=== PATIENT | female | born 1965 | race Caucasian/White ===

== ENCOUNTER 2017-06-21 07:57 | Emergency (ER) | payer BC, OTHER ==
[2017-06-21] MEDS ORDERED: ASPIRIN 81 MG TAB.CHEW PO ONE (08:12)
[2017-06-21] MEDS ORDERED: ASPIRIN 81 MG TAB.CHEW ONE (08:27)
[2017-06-21] MEDS ORDERED: MAG HYDROX/ALUMINUM HYD/SIMETH 30 ML UDC PO ONE (08:29)
[2017-06-21] MEDS ORDERED: LIDOCAINE HCL 20 ML UDC PO ONE (08:29)
[2017-06-21 08:35] LABS: Hematocrit 44.8 % (37.0-47.0); Hemoglobin 16.2 gm/dL (12.5-16.0); Mean Cell Volume 87.3 fl (78-100); Mean Corpuscular Hemoglobin 31.6 pg (27-31); Mean Corpuscular Hgb Conc 36.2 g/dl (32-36); Mean Platelet Volume 9.1 fl (6.0-9.5); Neutrophil # 6.4 K/mm3 (1.3-6.0); Neutrophil % 62.5 % (42-75.0); Platelet Count 234 K/mm3 (150-450); Red Blood Count 5.13 M/mm3 (4.2-5.4); Red Cell Distribution Width 12.3 % (11.5-14.0); White Blood Count 10.2 K/mm3 (4.0-10.5)
[2017-06-21 08:41] LABS: Prothrombin Time (Patient) 10.1 Seconds (9.0-11.0)
[2017-06-21 08:42] LABS: INR 1.01 INR (0.90-1.10); Partial Thrombolplastin Time 23.3 Seconds (24-32)
[2017-06-21] MEDS ORDERED: NITROGLYCERIN 0.4 MG/TAB BTL SL ONE (08:46)
[2017-06-21 08:49] LABS: ALT 119 U/L (19-67); AST 50 U/L (0-48); Albumin * 3.6 gm/dl (3.4-5.0); Alkaline Phosphatase * 116 U/L (50-170); Amylase * 28 U/L (25-115); Anion Gap 12.8 mmol/L (6.8-13.8); BUN/Creatinine Ratio 13.8 (9.0-21.6); Bilirubin, Total 0.7 mg/dL (0.0-1.1); Blood Urea Nitrogen 16 mg/dL (3-23); Ca. Corrected For Albumin 8.7 mg/dL (8.4-10.2); Calcium * 8.7 mg/dL (7.9-10.9); Carbon Dioxide 26.4 mmol/L (24-32.6); Chloride 102 mmol/L (97-106); Glucose * 123 mg/dL (70-110); Potassium 4.2 mmol/L (3.4-4.6); Sodium 137 mmol/L (132-142); Total Protein 6.9 gm/dL (6.2-8.2); Troponin I Less than 0.017 ng/ml (0.00-0.10)
[2017-06-21 08:58] LABS: Lipase 125 U/L (73-393)
[2017-06-21] MEDS ORDERED: PANTOPRAZOLE SODIUM 40 MG in NORMAL SALINE 100 ML IV ONE (09:05)
[2017-06-21 09:24] LABS: Urine Bilirubin Negative (NEGATIVE); Urine Blood Negative /ul (NEGATIVE); Urine Ketone Negative (NEGATIVE); Urine Nitrite Negative (NEGATIVE); Urine Protein Negative (NEGATIVE); Urine Urobilinogen Normal (NORMAL)
[2017-06-21] MEDS ORDERED: PANTOPRAZOLE SODIUM 40 MG in NORMAL SALINE 50 ML IV ONE (09:30)
[2017-06-21 09:31] LABS: Urine Appearance Clear; Urine Bacteria None Seen; Urine Color Yellow; Urine RBC None Seen /hpf (0-5); Urine WBC None Seen /hpf (0-5)
--- NOTE | 2017-06-21 12:36 | ERNOTE ---
Chest Pain/Cardiac HPI Date of Service: 06/21/17 Chief Complaint: Chest Pain Time Seen by Provider: 06/21/17 08:15 Source: patient, family Exam Limitations: no limitations Immunizations: IMMUNIZATION HX Immunizations Up to Date Yes History of Influenza Vaccine Yes Hx Pneumococcal Vaccination No Allergies/Adverse Reactions: Allergies lidocaine Allergy (Verified 06/21/17 08:11) Home Medications: HOME MEDICATIONS Atenolol [Tenormin] 50 mg PO DAILY 09/08/15 [Last Taken Unknown] Narrative: patient had episode of pin in epigastrium with radiatiion to chest, hx of gerd Timing: intermittent, resolved prior to arrival Severity/Quality: moderate, aching, sharp Location: substernal, epigastric Chest Pain Radiation: epigastric Activities at Onset: none Modifying Factors - Improves: Present: rest Modifying Factors - Worsens: Present: eating Nitro Today/Relief: no nitro taken today Aspirin Treatment Today: no aspirin today Associated Symptoms: Present: denies symptoms Review of Systems - Narrative Narrative: unremakable - Review of Systems Constitutional: Present: See HPI EYE: Present: no symptoms reported ENT: Present: no symptoms reported Respiratory: Present: no symptoms reported Cardiology: Present: no symptoms reported Gastrointestinal/Abdominal: Present: no symptoms reported Genitourinary: Present: no symptoms reported Musculoskeletal: Present: no symptoms reported Skin: Present: no symptoms reported Neurological: Present: no symptoms reported Endocrine: Present: no symptoms reported Hematologic/Lymphatic: Present: no symptoms reported Psych: Present: no symptoms reported All Other Systems: All systems neg except as marked - Narrative Narrative: unremarkable - Patient's Past Medical History Patient History - Medical: No pertinent hx Patient History - Cardiac/Respiratory: Hypertension Patient History - Cancer: No Hx of Cancer Patient History - Surgical Procedures: , Other Patient History - Other: None LMP (females 10-50): Menopausal - Family History Family History:: no untoward family reactions to anesthesia, no familial bleeding tendencies, no family history of clotting disorders, no family history of premature - Social History Living Situations: significant other Abuse History: No History of abuse Psych History: No pertinent hx Does anyone smoke in the home?: No Smoking Status: Never smoker Have you smoked in the past 12 months: No Do you dip or chew tobacco: No Patient requests Smoking Cessation Consult: No Initiate information on Smoking Cessation: No Alcohol Use: none Drug Use: none - Immunizations Immunizations Up to Date: Yes Hx Pneumococcal Vaccination: No History of Influenza Vaccine: Yes Physical Exam - Physical Exam General Appearance: Present: mild distress Head Exam: Present: normal inspection, no evidence of injury Eye Exam: Normal inspection: bilateral, PERRL: bilateral, EOMI: bilateral Ears, Nose, Throat: Present: normal ENT inspection Neck: Present: normal inspection, nontender Respiratory: Present: no respiratory distress, normal breath sounds Cardiovascular/Chest: Present: regular rate, rhythm, no murmur, normal peripheral pulses Peripheral Pulses: N=norm/S=strong/W=weak/B=bound/A=absent: Carotid (R): Normal , Carotid (L): Normal, Radial (R): Normal, Radial (L): Normal, Femoral (R): Normal, Femoral (L): Normal, Dorsalis-pedis (R): Normal, Dorsalis-pedis (L): Normal Gastrointestinal/Abdominal: Present: normal bowel sounds, no organomegaly, tenderness Back Exam: Present: normal inspection, normal range of motion, no CVA tenderness , no vertebral tenderness Extremity Exam: Present: normal inspection, non-tender, normal range of motion, no edema Neurological Exam: Present: alert, oriented, normal mood/affect, no motor/ sensory deficits Skin Exam: Present: normal color, warm/dry Lymphatic Exam: Present: no adenopathy ED Progress - Date and Time Seen: Date and Time: 06/21/17 12:33 patient improved, discussed labs and condition to be dismissed - Results and Orders Patient's Lab Results:: I have reviewed the patient's lab results. - Vital Signs Patient's Vital Signs:: I have reviewed the patient's vital signs. Vital Signs: Vital Signs 06/21/17 06/21/17 06/21/17 08:06 08:07 08:21 Temperature 36.4 C L Pulse Rate 86 85 89 Respiratory 10 L 14 15 Rate Blood Pressure 164/89 164/98 151/91 O2 Sat by Pulse 94 97 94 Oximetry 06/21/17 06/21/17 06/21/17 08:36 08:48 08:51 Temperature Pulse Rate 82 94 92 Respiratory 14 17 12 Rate Blood Pressure 157/92 123/81 136/79 O2 Sat by Pulse 95 95 97 Oximetry 06/21/17 06/21/17 06/21/17 09:12 09:27 09:40 Temperature Pulse Rate 84 79 81 Respiratory 17 16 13 Rate Blood Pressure 122/86 121/82 121/82 O2 Sat by Pulse 97 95 97 Oximetry 06/21/17 06/21/17 06/21/17 09:42 09:56 10:00 Temperature Pulse Rate 84 85 82 Respiratory 17 17 15 Rate Blood Pressure 130/82 139/85 O2 Sat by Pulse 94 95 96 Oximetry 06/21/17 11:47 Temperature Pulse Rate 79 Respiratory 16 Rate Blood Pressure 136/85 O2 Sat by Pulse 96 Oximetry - EKG EKG: NSR - Progress/Reassessment Chief Complaint: Chest Pain Progress:: Improved - Transfer of Care Expected Disposition: Discharge Plan - Plan Plan: to be discharged Departure Clinical Impression: Chest pain, Reflux esophagitis - Departure Disposition: Home self-care Condition: Fair Instructions: Indigestion, [id number] Referrals: Татьяна Iqbal MD [Primary Care Provider] -
[2017-06-21 12:51] VITALS: BP 119/78
== END 2017-06-21 12:52 | disposition home or self-care (01) ==
LOC: ER 07:57
DX: R07.9 Chest pain, unspecified (principal); K21.9 Gastro-esophageal reflux disease without esophagitis; I10 Essential (primary) hypertension